=== PATIENT | male | born 1935 | race Caucasian/White ===

== ENCOUNTER 2022-05-19 22:13 | Emergency (ER) | payer MEDICARE, OTHER ==
[~2022-05-19] VITALS: Ht 167.6 cm; Wt 93.0 kg
--- NOTE | 2022-05-19 23:20 | NUR ---
Patient walked into ER c/o unable to urinate. Patient states he had lamectomy this afternoon.
--- NOTE | 2022-05-20 00:27 | NUR ---
Dr. Carmona on bedside for MSE.
--- NOTE | 2022-05-20 00:47 | NUR ---
Patient discharged to home in stable condition. Written and verbal after care instructions given. Patient verbalizes understanding of instructions. Stressed follow up or return to ER for worsening s/s. Patient ambulated fr the ER with steady gait. All belongings with patient.
[2022-05-20 00:48] VITALS: BP 158/76
[2022-05-20 00:58] LABS: *BILIRUBIN,URIN NEGATIVE (NEGATIVE); *BLOOD, URINE 1+ (NEGATIVE); *CLARITY,URINE CLEAR (CLEAR); *COLOR,URINE YELLOW (YELLOW); *KETONES,URINE NEGATIVE (NEGATIVE); *UROBILINOGEN,URINE 0.2 E.U./dl (NORMAL); LEUKOCYTE ESTERASE ,URINE 1+ (NEGATIVE); NITRITE, URINE NEGATIVE (NEGATIVE); PH,URINE 5.5 (5.0-8.0); UGLUCOSE NEGATIVE (NEGATIVE)
[2022-05-20 01:41] LABS: RBC,URINE 0-3 /HPF (0-3)
[2022-05-20 01:42] LABS: BACTERIA,URINE NONE SEEN /HPF (NONE SEEN); SQUAMOUS EPITHELIAL CELL,UR FEW /HPF (NONE SEEN)
== END 2022-05-20 00:48 | disposition home or self-care (01) ==
LOC: ER 22:13
DX: N99.89 Other postprocedural complications and disorders of genitourinary system (principal); J45.909 Unspecified asthma, uncomplicated
CPT/HCPCS: 87086; A4663